=== PATIENT | female | born 1985 | race Hispanic/Latino ===

== ENCOUNTER 2018-12-08 09:09 | Emergency (ER) | payer OTHER ==
[~2018-12-08] VITALS: Ht 152.4 cm; Wt 60.8 kg
[2018-12-08 09:46] LABS: BILIRUBIN,URINE NEGATIVE (NEGATIVE); CLARITY,URINE CLEAR (CLEAR); COLOR,URINE YELLOW (YELLOW); LEUKOCYTE ESTERASE ,URINE TRACE (NEGATIVE); NITRITE,URINE NEGATIVE (NEGATIVE); PROTEIN,URINE DIPSTICK TRACE (NEGATIVE); URINE UROBILINOGEN 0.2 mg/dL (0.2 - 1)
[2018-12-08 09:48] LABS: KETONES,URINE 2+ (NEGATIVE)
[2018-12-08 09:56] LABS: BACTERIA,URINE RARE /HPF; EPITHELIAL CELLS,URINE FEW /LPF
[2018-12-08 11:27] LABS: PREGNANCY TEST, URINE NEGATIVE (NEGATIVE)
[2018-12-08] MEDS ORDERED: CEFTRIAXONE SOD 1 GM VIAL IM ONE (12:30)
[2018-12-08] MEDS ORDERED: LIDOCAINE HCL 1% 2 ML AMP ONE (12:54)
--- NOTE | 2018-12-08 12:54 | NUR ---
JAZMINE MCLEAN IN TRIAGE ROOM FOR PATIENT EVAL AND DISCUSSING THE CURRENT PLAN OF CARE,VERBALIZED UNDERSTANDING. NO SIGNS OF ACUTE DISTRESS NOTED.
== END 2018-12-08 13:25 | disposition home or self-care (01) ==
LOC: ER 09:09
DX: N30.91 Cystitis, unspecified with hematuria (principal); R11.2 Nausea with vomiting, unspecified; E86.0 Dehydration
CPT/HCPCS: 81001; 81025; 99282; J0696; J2001

== ENCOUNTER 2019-08-29 18:54 | Emergency (ER) | payer OTHER ==
[~2019-08-29] VITALS: Ht 152.4 cm; Wt 60.8 kg
[2019-08-29 20:40] LABS: BASOPHILS # (AUTO) 0.1 (0.0-0.1); BASOPHILS % 0.6 % (0.0-1.0); EOSINOPHILS % 0.1 % (0.0-6.0); HEMATOCRIT 41.6 % (34.2-44.1); HEMOGLOBIN 13.4 g/dL (12.0-16.0); LYMPHOCYTES # (AUTO) 2.6 (1.0-3.2); LYMPHOCYTES % 18.3 % (18.0-39.1); MEAN CORPUSCULAR HEMOGLOBIN 27.7 pg (28-32); MEAN CORPUSCULAR HGB CONC 32.2 g/dL (31-35); MEAN CORPUSCULAR VOLUME 86.1 fL (81-99); MONOCYTES # (AUTO) 0.8 (0.2-0.8); MONOCYTES % 5.5 % (4.4-11.3); NEUTROPHILS # (AUTO) 10.7 (2.1-6.9); NEUTROPHILS % 74.9 % (38.7-80.0); PLATELET COUNT 495 x10e3/uL (140-360); RED BLOOD COUNT 4.83 x10e6/uL (3.6-5.1); RED CELL DISTRIBUTION WIDTH 13.3 % (11.7-14.4)
[2019-08-29 20:41] LABS: CLARITY,URINE SL CLOUDY (CLEAR); COLOR,URINE YELLOW (YELLOW); KETONES,URINE 2+ (NEGATIVE); LEUKOCYTE ESTERASE ,URINE TRACE (NEGATIVE); NITRITE,URINE NEGATIVE (NEGATIVE); PROTEIN,URINE DIPSTICK 1+ (NEGATIVE); URINE UROBILINOGEN 0.2 mg/dL (0.2 - 1)
[2019-08-29 20:42] LABS: BILIRUBIN,URINE SMALL (NEGATIVE)
[2019-08-29 20:49] LABS: BACTERIA,URINE MANY /HPF; EPITHELIAL CELLS,URINE MANY /LPF; WBC,URINE (MAN) >50 /HPF (0-5)
[2019-08-29 21:00] LABS: ALANINE AMINOTRANSFERASE 71 IU/L (0-55); ALBUMIN/GLOBULIN RATIO 1.2 (0.8-2.0); ALKALINE PHOSPHATASE 122 IU/L (40-150); ANION GAP 19.5 mmol/L (8-16); BLOOD UREA NITROGEN 7 mg/dL (7-26); BUN/CREATININE RATIO 9 (6-25); CALCIUM 10.6 mg/dL (8.4-10.2); CARBON DIOXIDE 21 mmol/L (22-29); CHLORIDE 103 mmol/L (98-107); CREATININE, SERUM 0.79 mg/dL (0.57-1.11); EST GLOMERULAR FILTRATION RATE > 60 ML/MIN (60-); GLUCOSE 113 mg/dL (74-118); POTASSIUM 3.5 mmol/L (3.5-5.1); SODIUM 140 mmol/L (136-145)
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
== END 2019-08-29 21:21 | disposition home or self-care (01) ==
LOC: ER 18:54
DX: R11.2 Nausea with vomiting, unspecified (principal); R19.7 Diarrhea, unspecified; N39.0 Urinary tract infection, site not specified; Z87.19 Personal history of other diseases of the digestive system
CPT/HCPCS: 36415; 80053; 81001; 81025; 85025; 99283

== ENCOUNTER 2019-09-21 11:58 | Emergency (ER) | payer OTHER ==
[~2019-09-21] VITALS: Ht 154.9 cm; Wt 63.5 kg
[2019-09-21] MEDS ORDERED: SODIUM CHLORIDE 0.9% 1000ML 1,000 ML IV STA (12:08)
[2019-09-21] MEDS ORDERED: ONDANSETRON HCL INJ 2MG/ML 2ML 2 MG/ML VIAL IV ONE (12:15)
[2019-09-21] MEDS ORDERED: FAMOTIDINE 20 MG/2 ML VIAL IV ONE ×2 (12:15→12:32)
[2019-09-21] MEDS ORDERED: SODIUM CHLORIDE 0.9% 1000ML 1,000 ML ONE (12:32)
[2019-09-21] MEDS ORDERED: ONDANSETRON HCL INJ 2MG/ML 2ML 2 MG/ML VIAL ONE (12:32)
--- NOTE | 2019-09-21 12:37 | Emergency Department Note ---
History of Present Illnes History of Present Illness Chief Complaint: Abdominal Complaints History of Present Illness This is a 33 year old female c/o mild RUQ pain nausea, diarrhea (2-3 soft stool per day) feeling dizzy on standing up for 2 days, no f/c no SOB no cough. She was tested for COVID 19 few days back but no rsult yet. She had UTI last monh tx with Levoquin and now she has similar symptoms. Other Medical History GASTRITIS Past Surgical History: Cholecysctectomy Historian: Patient Arrival Mode: Car Onset (how long ago): day(s) Radiation: Reports non-radiation Severity: mild Timing of current episode: intermittent Progression: improving Relieving factors: none Exacerbating factors: none Associated symptoms: Reports denies other symptoms Treatments prior to arrival: none Past Medical/Family History Physician Review I have reviewed the patient's past medical and family history. Any updates have been documented here. Past Medical History Recent Fever: No Clinical Suspicion of Infectio: No Other Medical History: GASTRITIS Past Surgical History: Cholecysctectomy Social History Smoking Cessation: Never Smoker Counseling Performed: No Alcohol Use: None Any Illegal Drug Use: No TB Exposure/Symptoms: No Physically hurt or threatened: No Family History Family history of heart diseas: No Other Last Tetanus: UNKNOWN Any Pre-Existing Lines (PICC,: No Review of Systems Review of Systems EENTM: Reports no symptoms Cardiovascular: Reports no symptoms Respiratory: Reports no symptoms Gastrointestinal: Reports abdominal pain, Reports diarrhea, Reports nausea Genitourinary: Reports no symptoms Musculoskeletal: Reports no symptoms Integumentary: Reports no symptoms Neurological: Reports other (dizzy) Psychological: Reports no symptoms Endocrine: Reports no symptoms Hematological/Lymphatic: Reports no symptoms Physical Exam Related Data Allergies: Coded Allergies: Penicillins (Verified Allergy, Unknown, RASH, 09/21/19) Uncoded Allergies: PENECILLN (Allergy, Intermediate, RASH, 08/29/19) Vital signs reviewed: Yes Physical Exam CONSTITUTIONAL Constitutional: Present well-developed, Present well-nourished, Present other (walking briskly, steady gait, ) HENT HENT: Present normocephalic, Present atraumatic, Present oropharynx clear/moist, Present nose normal HENT L/R: Present left ext ear normal, Present right ext ear normal EYES Eyes: Reports PERRL, Reports conjunctivae normal NECK Neck: Present ROM normal PULMONARY Pulmonary: Present effort normal, Present breath sounds normal CARDIOVASCULAR Cardiovascular: Present regular rhythm, Present heart sounds normal, Present capillary refill normal, Present normal rate GASTROINTESTINAL Abdominal: Present soft, Present nontender, Present bowel sounds normal GENITOURINARY Genitourinary: Present exam deferred SKIN Skin: Present warm, Present dry MUSCULOSKELETAL Musculoskeletal: Present ROM normal NEUROLOGICAL Neurological: Present alert, Present oriented x 3, Present no gross motor or sensory deficits PSYCHOLOGICAL Psychological: Present mood/affect normal, Present judgement normal Results Laboratory Lab results reviewed: Yes Laboratory comments UA c/w UTI Assessment & Plan Medical Decision Making MDM gastroenteritis, UTI Reassessment Reassessment time: 13:45 Reassessment taking PO well, in NAD Assessment & Plan Final Impression: (1) Gastroenteritis (2) UTI (urinary tract infection) Depart Disposition: HOME, SELF-[facility] Meds Active Scripts Nitrofurantoin Macrocrystal (MACRODANTIN) 100 Mg Capsule, 100 MG PO QID, #20 CAP Prov:BERNARDA GIRON MD 09/21/19 Ondansetron Hcl* (ZOFRAN*) 4 Mg Tablet, 4 MG SL Q6H PRN for NAUSEA, #14 MG 0 Refills Prov:BERNARDA GIRON MD 09/21/19 Famotidine (FAMOTIDINE) 20 Mg Tab, 20 MG PO BID, #30 TAB Prov:BERNARDA GIRON MD 09/21/19 Medications in the ED Ondansetron HCl 4 mg ONCE ONCE IV ; Start 09/21/19 at 12:15; Stop 09/21/19 at 12:23; Status DC Famotidine 20 mg ONCE ONCE IV ; Start 09/21/19 at 12:15; Stop 09/21/19 at 12:23; Status DC Sodium Chloride 1,000 ml @ 0 mls/hr Q0M STAT IV ; Start 09/21/19 at 12:08; Stop 09/21/19 at 12:15; Status DC Ondansetron HCl 4 mg STK-MED ONCE .ROUTE ; Start 09/21/19 at 12:32; Stop 09/21/19 at 12:28; Status DC Sodium Chloride 1,000 ml @ ud STK-MED ONCE .ROUTE ; Start 09/21/19 at 12:32; Stop 09/21/19 at 12:28; Status DC Famotidine 20 mg STK-MED ONCE IV ; Start 09/21/19 at 12:32; Stop 09/21/19 at 12:28; Status DC BERNARDA GIRON MD Sep 21, 2019 12:37
[2019-09-21] MEDS ORDERED: ZOFRAN4 MG SL (13:34)
[2019-09-21] MEDS ORDERED: FAMOTIDINE20 MG PO (13:34)
[2019-09-21] MEDS ORDERED: CEFDINIR300 MG PO (13:34)
[2019-09-21] MEDS ORDERED: CEFTRIAXONE SOD 1 GM VIAL IV ONE (13:45)
[2019-09-21] MEDS ORDERED: MACRODANTIN100 MG PO (13:58)
[2019-09-21] MEDS ORDERED: CEFTRIAXONE SOD 1 GM/NS 50 ML 50 ML IV ONE (14:00)
[2019-09-21 14:02] VITALS: BP 127/71
== END 2019-09-21 14:04 | disposition home or self-care (01) ==
LOC: FSED 12:40
DX: K52.9 Noninfective gastroenteritis and colitis, unspecified (principal); N39.0 Urinary tract infection, site not specified; R10.11 Right upper quadrant pain; R11.0 Nausea; R42 Dizziness and giddiness
CPT/HCPCS: 80053; 81003; 81025; 85025; 96374; 96376; 99283; J2405; J7030

== ENCOUNTER 2019-10-10 11:05 | Emergency (ER) | payer OTHER ==
[~2019-10-10] VITALS: Ht 154.9 cm; Wt 81.6 kg
[~2019-10-10 11:05] MED LIST: CEFDINIR300 MG PO; FAMOTIDINE20 MG PO; MACRODANTIN100 MG PO; ZOFRAN4 MG SL
--- OUTSIDE RECORDS SUMMARY | 2019-10-10 11:50 | XMS REPORT | Continuity of Care Document ---
Author Author [facility] t Organization [facility] Address [facility] [address] [place] [address] Phone Unavailable Care Team Providers Care Cafeteria Cook Name Role Phone NONSTAFF PCP Unavailable Payers Payer Name Policy Type Policy Number Effective Date Expiration Date Brett Stanton o [id number] 2019 00:00:00 2020 00:0 0:00 [facility] [employer] o [id number] 2015 00:00:00 [facility] Problems Condition Name Condition Details Condition Category Status Onset Date Resolution Date Last Treatment Date Treating Clinician Comments Source Urinary tract infection Problem Active [facility] Vomiting Problem Active [facility] Diarrhea Problem Active [facility] Gastroenteritis Problem Active [facility] Allergies, Adverse Reactions, Alerts Allergy Name Allergy Type Status Severity Reaction(s) Onset Date Inacti ve Date Treating Clinician Comments Source Penicillin Allergy to substance Active RASH 2019-09-21 00:00:00 [facility] PENECILLN Allergy to substance Active Moderate RASH 2019-08-29 00:00:00 [facility] Social History Social Habit Start Date Stop Date Quantity Comments Source Sex Assigned At 1985 00:00:00 1985 00:00:00 Female [facility] Medications Ordered Medication Name Filled Medication Name Start Date Stop Da te Current Medication? Ordering Clinician Indication Dosage Frequency Signature (SIG) Comments Components Source Nitrofurantoin Macrocrystal (Macrodantin) 100 Mg CAPSU LE Nitrofurantoin Macrocrystal (Macrodantin) 100 Mg CAPSULE 2019-09-21 13:58:00 Yes 100 Four Times Daily [facility] Famotidine Famotidine 2019-09-21 13:34:00 Yes 20 Twi ce A Day [facility] Ondansetron Hcl (Zofran*) 4 Mg TABLET Ondansetron Hcl (Zofra n*) 4 Mg TABLET 2019-09-21 13:34:00 Yes 4 Every 6 Hours as n eeded for Nausea [facility] Vital Signs Vital Name Observation Time Observation Value Comments Source Body Temperature 2019-09-21 14:02:00 98.2 [degF] [facility] Weight 2019-09-21 12:00:00 140 [lb_av] [facility] BMI (Body Mass Index) 2019-09-21 12:00:00 26.5 kg/m2 [facility] Weight 2019-08-29 19:56:00 134 [lb_av] [facility] BMI (Body Mass Index) 2019-08-29 19:56:00 26.2 kg/m2 [facility] Procedures This patient has no known procedures. Plan of Care Planned Activity Planned Date Details Comments Source Instructions Abdominal Pain - Adult [facility] Instructions Urinary Tract Infection - Women [facility] Encounters Start Date/Time End Date/Time Encounter Type Admission Type [facility] Care Department Encounter ID Source 2019-09-21 12:40:00 2019-09-21 14:04:00 Departed Emergency Room [facility] [id number] [facility] 2019-08-29 18:54:00 2019-08-29 21:21:00 Departed Emergency Room [facility] [id number] [facility] 2018-12-08 09:09:00 2018-12-08 13:25:00 Departed Emergency Room [facility] [id number] [facility] Results Test Description Test Time Test Comments Results Result Comments Source Blood leukocytes automated count (number/volume) 2019-08-29 20:05:00 Test Item White Blood Count (test code = 6690-2) 14.30 4.8-10.8 [facility] erythrocytes automated count (number/volume)2019-08-29 20:05:00* Test Item Value Reference Range Interpretation Comments Red Blood Count (test code = 789-8) 4.83 3.6-5.1 [facility] HospitalBlood hemoglobin measurement (moles/volume)2019-08-29 20:05:00* Test Item Value Reference Range Interpretation Comments Hemoglobin (test code = 16087-2) 13.4 12.0-16.0 [facility] HospitalAutomated blood hematocrit (volume fraction)2019-08-29 20:05:00* Test Item Value Reference Range Interpretation Comments Hematocrit (test code = 4544-3) 41.6 34.2-44.1 [facility] HospitalAutomated erythrocyte mean corpuscular cralrm0181-21-74 20:05:00* Test Item Value Reference Range Interpretation Comments Mean Corpuscular Volume (test code = 787-2) 86.1 81-99 [facility] HospitalAutomated erythrocyte mean corpuscular hemoglobin (mass per erythrocyte)2019-08-29 20:05:00* Test Item Value Reference Range Interpretation Comments Mean Corpuscular Hemoglobin (test code = 785-6) 27.7 28-32 [facility] HospitalAutomated erythrocyte mean corpuscular hemoglobin concentration measurement (mass/volume)2019-08-29 20:05:00* Test Item Value Reference Range Interpretation Comments Mean Corpuscular Hemoglobin Concent (test code = 786-4) 32.2 31-35 [facility] HospitalRDW PgmSk-Qqz5069-18-23 20:05:00* Test Item Value Reference Range Interpretation Comments Red Cell Distribution Width (test code = 11725-9) 13.3 11.7 -14.4 [facility] HospitalAutomated blood platelet count (count/volume)2019-08-29 20:05:00* Test Item Value Reference Range Interpretation Comments Platelet Count (test code = 777-3) 495 140-360 [facility] HospitalAutomated blood segmented neutrophil count as percentage of total irrywesvgs5366-74-26 20:05:00* Test Item Value Reference Range Interpretation Comments Neutrophils (%) (Auto) (test code = 42406-5) 74.9 38.7-80.0 [facility] HospitalAutomated blood lymphocyte count as percentage ot total bfcluijmib7574-82-40 20:05:00* Test Item Value Reference Range Interpretation Comments Lymphocytes (%) (Auto) (test code = 736-9) 18.3 18.0-39.1 [facility] HospitalAutomated blood monocyte count as percentage of total pdgwhfcfhq1796-92-74 20:05:00* Test Item Value Reference Range Interpretation Comments Monocytes (%) (Auto) (test code = 5905-5) 5.5 4.4-11.3 [facility] HospitalAutomated blood eosinophil count as percentage of total tkxvfzbalz6577-75-24 20:05:00* Test Item Value Reference Range Interpretation Comments Eosinophils (%) (Auto) (test code = 713-8) 0.1 0.0-6.0 [facility] HospitalAutomated blood basophil count as percentage of total pklidtyqcm7523-57-82 20:05:00* Test Item Value Reference Range Interpretation Comments Basophils (%) (Auto) (test code = 706-2) 0.6 0.0-1.0 [facility] HospitalFluoroscopic procedure less than one hour rbwkvgsz9072-38-68 20:05:00* Test Item Value Reference Range Interpretation Comments IM GRANULOCYTES % (test code = IM GRANULOCYTES %) 0.6 0.0- 1.0 [facility] HospitalAutomated blood neutrophil count 2019-08-29 20:05:00* Test Item Value Reference Range Interpretation Comments Neutrophils # (Auto) (test code = 751-8) 10.7 2.1-6.9 [facility] HospitalBlood lymphocytes count (number/volume) 2019-08-29 20:05:00* Test Item Value Reference Range Interpretation Comments Lymphocytes # (Auto) (test code = 88872-9) 2.6 1.0-3.2 [facility] HospitalBlood monocytes automated count (number/volume)2019-08-29 20:05:00* Test Item Value Reference Range Interpretation Comments Monocytes # (Auto) (test code = 742-7) 0.8 0.2-0.8 [facility] HospitalAutomated blood eosinophil count 2019-08-29 20:05:00* Test Item Value Reference Range Interpretation Comments Eosinophils # (Auto) (test code = 711-2) 0.0 0.0-0.4 [facility] HospitalAutomated blood basophil count (count/volume)2019-08-29 20:05:00* Test Item Value Reference Range Interpretation Comments Basophils # (Auto) (test code = 704-7) 0.1 0.0-0.1 [facility] HospitalFluoroscopic procedure less than one hour cldmfkyi7230-37-27 20:05:00* Test Item Value Reference Range Interpretation Comments Absolute Immature Granulocyte (auto (kingsley t code = Absolute Immature Granulocyte (auto) 0.09 0-0.1 [facility] HospitalUrine color blpfgbjvrtpkn2549-33-09 20:05:00* Test Item Value Reference Range Interpretation Comments Urine Color (test code = 5778-6) YELLOW YELLOW [facility] HospitalUrine ffmfjpm3584-67-85 20:05:00* Test Item Value Reference Range Interpretation Comments Urine Clarity (test code = 80523-1) SL [facility]OUDY [facility] by Test strip 2019-08-29 20:05:00* Test Item Value Reference Range Interpretation Comments Urine Specific [place] (test code = 5811-5) 1.025 1.010-1.02 5 [facility] HospitalUrine pH measurement by automated test owhys9889-64-00 20:05:00* Test Item Value Reference Range Interpretation Comments Urine pH (test code = 84914-1) 6.5 5-7 [facility] HospitalUrine leukocyte esterase detection by xnofngxd5588-58-05 20:05:00* Test Item Value Reference Range Interpretation Comments Urine Leukocyte Esterase (test code = 5799-2) TRACE NEGATIVE [facility] HospitalUrine nitrite eikfqnrhs8538-24-84 20:05:00* Test Item Value Reference Range Interpretation Comments Urine Nitrite (test code = 27780-8) NEGATIVE NEGATIVE [facility] HospitalUrine protein measurement by test strip (mass/volume)2019-08-29 20:05:00* Test Item Value Reference Range Interpretation Comments Urine Protein (test code = 5804-0) 1+ NEGATIVE [facility] HospitalUrine glucose uoyvrfeyk5399-19-80 20:05:00* Test Item Value Reference Range Interpretation Comments Urine Glucose (UA) (test code = 2349-9) NEGATIVE NEGATIVE [facility] HospitalUrine ketones detection by automated test brncx5281-42-56 20:05:00* Test Item Value Reference Range Interpretation Comments Urine Ketones (test code = 56912-0) 2+ NEGATIVE [facility] HospitalUrine urobilinogen measurement by test strip (mass/volume)2019-08-29 20:05:00* Test Item Value Reference Range Interpretation Comments Urine Urobilinogen (test code = 52797-3) 0.2 0.2-1 [facility] HospitalUrine total bilirubin measurement (mass/volume)2019-08-29 20:05:00* Test Item Value Reference Range Interpretation Comments Urine Bilirubin (test code = 1978-6) SMALL NEGATIVE [facility] HospitalUrine erythrocytes kfskjieaz8735-27-54 20:05:00* Test Item Value Reference Range Interpretation Comments Urine Blood (test code = 25417-5) SMALL NEGATIVE [facility] HospitalAutomated urine sediment leukocyte count by microscopy (number/high power field)2019-08-29 20:05:00* Test Item Value Reference Range Interpretation Comments Urine WBC (test code = 5821-4) >50 0-5 [facility] HospitalErythrocytes detection in urine sediment by light eymumswxqe5274-21-37 20:05:00* Test Item Value Reference Range Interpretation Comments Urine RBC (test code = 52091-6) 11-20 0-5 [facility] HospitalBacteria detection in urine sediment by light fgeeeiqnhd8305-99-64 20:05:00* Test Item Value Reference Range Interpretation Comments Urine Bacteria (test code = 75319-2) MANY NONE [facility] HospitalEpithelial cells detection in urine sediment by light itxhufipmj9920-01-35 20:05:00* Test Item Value Reference Range Interpretation Comments Urine Epithelial Cells (test code = 20388-1) MANY NONE [facility] HospitalUrine human chorionic gonadotropin (hCG) zclyxuzin9163-45-17 20:05:00* Test Item Value Reference Range Interpretation Comments Urine Test (test code = 2106-3) NEGATIVE NEGATIVE [facility] plasma sodium measurement (moles/volume)2019-08-29 20:05:00* Test Item Value Reference Range Interpretation Comments Sodium Level (test code = 2951-2) 140 136-145 [facility] or plasma potassium measurement (moles/volume)2019-08-29 20:05:00* Test Item Value Reference Range Interpretation Comments Potassium Level (test code = 2823-3) 3.5 3.5-5.1 [facility] plasma chloride measurement (moles/volume)2019-08-29 20:05:00* Test Item Value Reference Range Interpretation Comments Chloride Level (test code = 2075-0) 103 98-107 [facility] or plasma carbon dioxide, total measurement (moles/volume)2019-08-29 20:05:00* Test Item Value Reference Range Interpretation Comments Carbon Dioxide Level (test code = 2028-9) 21 22-29 [facility] plasma anion jdy4966-12-95 20:05:00* Test Item Value Reference Range Interpretation Comments Anion Gap (test code = 36752-8) 19.5 8-16 [facility] plasma urea nitrogen measurement (mass/volume)2019-08-29 20:05:00* Test Item Value Reference Range Interpretation Comments Blood Urea Nitrogen (test code = 3094-0) 7 7-26 [facility] creatinine measurement (mass/volume)2019-08-29 20:05:00* Test Item Value Reference Range Interpretation Comments Creatinine (test code = 2160-0) 0.79 0.57-1.11 [facility] urea nitrogen/creatinine mass dpqfj2131-35-11 20:05:00* Test Item Value Reference Range Interpretation Comments BUN/Creatinine Ratio (test code = 3097-3) 9 6-25 [facility] HospitalEstimated glomerular filtration rate (GFR) qzyelqtdsbrmp7580-13-43 20:05:00* Test Item Value Reference Range Interpretation Comments Estimat Glomerular Filtration Rate (test code = 771320154) > 60 >60 Ranges were taken from the National Kidney Disease Education Program and the [facility] Kidney Foundation literature.Reference ranges:60 or greater: Maxnao17-89 ( for 3 consecutive months): Chronic kidney disease 15 or less: Kidney failureAudie L. Murphy Memorial VA HospitalGlucose kyptyztfnsy5943-45-31 20:05:00* Test Item Value Reference Range Interpretation Comments Glucose Level (test code = UGW0385) 113 74-118 [facility] plasma calcium measurement (mass/volume)2019-08-29 20:05:00* Test Item Value Reference Range Interpretation Comments Calcium Level (test code = 36312-2) 10.6 8.4-10.2 [facility] plasma total bilirubin measurement (mass/volume)2019-08-29 20:05:00* Test Item Value Reference Range Interpretation Comments Total Bilirubin (test code = 1975-2) 0.5 0.2-1.2 [facility] HospitalFluoroscopic procedure less than one hour ycriatuc7392-89-84 20:05:00* Test Item Value Reference Range Interpretation Comments Aspartate Amino Transf (AST/SGOT) (test code = Aspartate Amino Transf (AST/SGOT)) 61 5-34 [facility] or plasma alanine aminotransferase measurement (enzymatic activity/volume)2019-08-29 20:05:00* Test Item Value Reference Range Interpretation Comments Alanine Aminotransferase (ALT/SGPT) (test code = 1742-6) 71 0-55 [facility] or plasma protein measurement (mass/volume)2019-08-29 20:05:00* Test Item Value Reference Range Interpretation Comments Total Protein (test code = 2885-2) 9.3 6.5-8.1 [facility] albumin measurement (mass/volume)2019-08-29 20:05:00* Test Item Value Reference Range Interpretation Comments Albumin (test code = 1751-7) 5.0 3.5-5.0 [facility] HospitalPlasma globulin measurement (mass/volume) 2019-08-29 20:05:00* Test Item Value Reference Range Interpretation Comments Globulin (test code = 27414-1) 4.3 2.3-3.5 [facility] albumin/globulin mass qrypd2265-77-94 20:05:00* Test Item Value Reference Range Interpretation Comments Albumin/Globulin Ratio (test code = 1759-0) 1.2 0.8-2.0 [facility] plasma alkaline phosphatase measurement (enzymatic activity/volume)2019-08-29 20:05:00* Test Item Value Reference Range Interpretation Comments Alkaline Phosphatase (test code = 6768-6) 122 40-150 [facility] HospitalBlood leukocytes automated count (number/volume)2019-08-29 20:05:00* Test Item Value Reference Range Interpretation Comments White Blood Count (test code = 6690-2) 14.30 4.8-10.8 [facility] HospitalBlood erythrocytes automated count (number/volume)2019-08-29 20:05:00* Test Item Value Reference Range Interpretation Comments Red Blood Count (test code = 789-8) 4.83 3.6-5.1 [facility] HospitalBlood hemoglobin measurement (moles/volume)2019-08-29 20:05:00* Test Item Value Reference Range Interpretation Comments Hemoglobin (test code = 54669-8) 13.4 12.0-16.0 [facility] HospitalAutomated blood hematocrit (volume fraction)2019-08-29 20:05:00* Test Item Value Reference Range Interpretation Comments Hematocrit (test code = 4544-3) 41.6 34.2-44.1 [facility] HospitalAutomated erythrocyte mean corpuscular yovayy1459-02-24 20:05:00* Test Item Value Reference Range Interpretation Comments Mean Corpuscular Volume (test code = 787-2) 86.1 81-99 [facility] HospitalAutomated erythrocyte mean corpuscular hemoglobin (mass per erythrocyte)2019-08-29 20:05:00* Test Item Value Reference Range Interpretation Comments Mean Corpuscular Hemoglobin (test code = 785-6) 27.7 28-32 [facility] HospitalAutomated erythrocyte mean corpuscular hemoglobin concentration measurement (mass/volume)2019-08-29 20:05:00* Test Item Value Reference Range Interpretation Comments Mean Corpuscular Hemoglobin Concent (test code = 786-4) 32.2 31-35 [facility] HospitalRDW IecQm-Vqf5767-35-23 20:05:00* Test Item Value Reference Range Interpretation Comments Red Cell Distribution Width (test code = 04403-6) 13.3 11.7 -14.4 [facility] HospitalAutomated blood platelet count (count/volume)2019-08-29 20:05:00* Test Item Value Reference Range Interpretation Comments Platelet Count (test code = 777-3) 495 140-360 [facility] HospitalAutselect [facility] blood segmented neutrophil count as percentage of total bmbjefpuga8642-08-22 20:05:00* Test Item Value Reference Range Interpretation Comments Neutrophils (%) (Auto) (test code = 66667-6) 74.9 38.7-80.0 [facility] HospitalAutselect [facility] blood lymphocyte count as percentage ot total fisizolueo1443-07-41 20:05:00* Test Item Value Reference Range Interpretation Comments Lymphocytes (%) (Auto) (test code = 736-9) 18.3 18.0-39.1 [facility] HospitalAutomated blood monocyte count as percentage of total gkdpjiosyi2893-87-31 20:05:00* Test Item Value Reference Range Interpretation Comments Monocytes (%) (Auto) (test code = 5905-5) 5.5 4.4-11.3 [facility] HospitalAutomated blood eosinophil count as percentage of total ntcshwtzug0760-50-55 20:05:00* Test Item Value Reference Range Interpretation Comments Eosinophils (%) (Auto) (test code = 713-8) 0.1 0.0-6.0 [facility] HospitalAutomated blood basophil count as percentage of total mbjcvptftp3009-53-25 20:05:00* Test Item Value Reference Range Interpretation Comments Basophils (%) (Auto) (test code = 706-2) 0.6 0.0-1.0 [facility] HospitalFluoroscopic procedure less than one hour xfxnfhis5330-48-97 20:05:00* Test Item Value Reference Range Interpretation Comments IM GRANULOCYTES % (test code = IM GRANULOCYTES %) 0.6 0.0- 1.0 [facility] HospitalAutomated blood neutrophil count 2019-08-29 20:05:00* Test Item Value Reference Range Interpretation Comments Neutrophils # (Auto) (test code = 751-8) 10.7 2.1-6.9 [facility] HospitalBlood lymphocytes count (number/volume) 2019-08-29 20:05:00* Test Item Value Reference Range Interpretation Comments Lymphocytes # (Auto) (test code = 36154-7) 2.6 1.0-3.2 [facility] HospitalBlaitkin hospital monocytes automated count (number/volume)2019-08-29 20:05:00* Test Item Value Reference Range Interpretation Comments Monocytes # (Auto) (test code = 742-7) 0.8 0.2-0.8 [facility] HospitalAutomated blood eosinophil count 2019-08-29 20:05:00* Test Item Value Reference Range Interpretation Comments Eosinophils # (Auto) (test code = 711-2) 0.0 0.0-0.4 [facility] HospitalAutomated blood basophil count (count/volume)2019-08-29 20:05:00* Test Item Value Reference Range Interpretation Comments Basophils # (Auto) (test code = 704-7) 0.1 0.0-0.1 [facility] HospitalFluoroscopic procedure less than one hour cmdhxptv3425-37-78 20:05:00* Test Item Value Reference Range Interpretation Comments Absolute Immature Granulocyte (auto (kingsley t code = Absolute Immature Granulocyte (auto) 0.09 0-0.1 [facility] HospitalUrine color uzcycrsekreqn7492-01-84 20:05:00* Test Item Value Reference Range Interpretation Comments Urine Color (test code = 5778-6) YELLOW YELLOW [facility] HospitalUrine wmqdoku6731-67-22 20:05:00* Test Item Value Reference Range Interpretation Comments Urine Clarity (test code = 04243-4) SL CLOUDY CLEAR [facility] Height[facility] of Urine by Test strip 2019-08-29 20:05:00* Test Item Value Reference Range Interpretation Comments Urine Specific [place] (test code = 5811-5) 1.025 1.010-1.02 5 [facility] HospitalUrine pH measurement by automated test vdzkg7038-12-85 20:05:00* Test Item Value Reference Range Interpretation Comments Urine pH (test code = 29879-4) 6.5 5-7 [facility] HospitalUrine leukocyte esterase detection by koigkvlr3461-59-14 20:05:00* Test Item Value Reference Range Interpretation Comments Urine Leukocyte Esterase (test code = 5799-2) TRACE NEGATIVE [facility] HospitalUrine nitrite zwrysixyt2735-91-44 20:05:00* Test Item Value Reference Range Interpretation Comments Urine Nitrite (test code = 03545-3) NEGATIVE NEGATIVE [facility] HospitalUrine protein measurement by test strip (mass/volume)2019-08-29 20:05:00* Test Item Value Reference Range Interpretation Comments Urine Protein (test code = 5804-0) 1+ NEGATIVE [facility] HospitalUrine glucose fbxzgfekr9368-12-27 20:05:00* Test Item Value Reference Range Interpretation Comments Urine Glucose (UA) (test code = 2349-9) NEGATIVE NEGATIVE [facility] HospitalUrine ketones detection by automated test bkfid9827-77-24 20:05:00* Test Item Value Reference Range Interpretation Comments Urine Ketones (test code = 24881-2) 2+ NEGATIVE [facility] HospitalUrine urobilinogen measurement by test strip (mass/volume)2019-08-29 20:05:00* Test Item Value Reference Range Interpretation Comments Urine Urobilinogen (test code = 49617-3) 0.2 0.2-1 [facility] HospitalUrine total bilirubin measurement (mass/volume)2019-08-29 20:05:00* Test Item Value Reference Range Interpretation Comments Urine Bilirubin (test code = 1978-6) SMALL NEGATIVE [facility] HospitalUrine erythrocytes qfpbhhiaf8784-04-14 20:05:00* Test Item Value Reference Range Interpretation Comments Urine Blood (test code = 26093-9) SMALL NEGATIVE [facility] HospitalAutomated urine sediment leukocyte count by microscopy (number/high power field)2019-08-29 20:05:00* Test Item Value Reference Range Interpretation Comments Urine WBC (test code = 5821-4) >50 0-5 [facility] HospitalErythrocytes detection in urine sediment by light jocdphgbpl4563-77-65 20:05:00* Test Item Value Reference Range Interpretation Comments Urine RBC (test code = 29887-6) 11-20 0-5 [facility] HospitalBacteria detection in urine sediment by light bqfuidlbiv8983-06-47 20:05:00* Test Item Value Reference Range Interpretation Comments Urine Bacteria (test code = 85043-7) MANY NONE [facility] HospitalEpithelial cells detection in urine sediment by light [id number] 20:05:00* Test Item Value Reference Range Interpretation Comments Urine Epithelial Cells (test code = 13739-5) MANY NONE [facility] Hospital[facility] human chorionic gonadotropin (hCG) [id number] 20:05:00* Test Item Value Reference Range Interpretation Comments Urine Test (test code = 2106-3) NEGATIVE NEGATIVE [facility] sodium [facility] (moles/volume)2019-08-29 20:05:00* Test Item Value Reference Range Interpretation Comments Sodium Level (test code = 2951-2) 140 136-145 [facility] potassium measurement (moles/volume)2019-08-29 20:05:00* Test Item Value Reference Range Interpretation Comments Potassium Level (test code = 2823-3) 3.5 3.5-5.1 [facility] chloride measurement (moles/volume)2019-08-29 20:05:00* Test Item Value Reference Range Interpretation Comments Chloride Level (test code = 2075-0) 103 98-107 [facility] carbon dioxide, total measurement (moles/volume)2019-08-29 20:05:00* Test Item Value Reference Range Interpretation Comments Carbon Dioxide Level (test code = 2028-9) 21 22-29 [facility] anion [id number] 20:05:00* Test Item Value Reference Range Interpretation Comments Anion Gap (test code = 25822-5) 19.5 8-16 [facility] urea nitrogen measurement (mass/volume)2019-08-29 20:05:00* Test Item Value Reference Range Interpretation Comments Blood Urea Nitrogen (test code = 3094-0) 7 7-26 [facility] creatinine measurement (mass/volume)2019-08-29 20:05:00* Test Item Value Reference Range Interpretation Comments Creatinine (test code = 2160-0) 0.79 0.57-1.11 [facility] urea nitrogen/creatinine mass [id number] 20:05:00* Test Item Value Reference Range Interpretation Comments BUN/Creatinine Ratio (test code = 3097-3) 9 6-25 [facility] HospitalEstimated glomerular filtration rate (GFR) [id number] 20:05:00* Test Item Value Reference Range Interpretation Comments Estimat Glomerular Filtration Rate (test code = 772252660) > 60 >60 Ranges were taken from the National Kidney Disease Education Program and the [facility] literature.Reference ranges:60 or greater: Dxwcsp08-86 ( for 3 consecutive months): Chronic kidney disease 15 or less: Kidney failureAudie L. Murphy [facility] HospitalGlucose [id number] 20:05:00* Test Item Value Reference Range Interpretation Comments Glucose Level (test code = EZB7389) 113 74-118 [facility] calcium measurement (mass/volume)2019-08-29 20:05:00* Test Item Value Reference Range Interpretation Comments Calcium Level (test code = 19279-1) 10.6 8.4-10.2 [facility] total bilirubin measurement (mass/volume)2019-08-29 20:05:00* Test Item Value Reference Range Interpretation Comments Total Bilirubin (test code = 1975-2) 0.5 0.2-1.2 [facility] HospitalFluoroscopic procedure less than one hour [id number] 20:05:00* Test Item Value Reference Range Interpretation Comments Aspartate Amino Transf (AST/SGOT) (test code = Aspartate Amino Transf (AST/SGOT)) 61 5-34 [facility] alanine aminotransferase measurement (enzymatic activity/volume)2019-08-29 20:05:00* Test Item Value Reference Range Interpretation Comments Alanine Aminotransferase (ALT/SGPT) (test code = 1742-6) 71 0-55 [facility] protein measurement (mass/volume)2019-08-29 20:05:00* Test Item Value Reference Range Interpretation Comments Total Protein (test code = 2885-2) 9.3 6.5-8.1 [facility] albumin measurement (mass/volume)2019-08-29 20:05:00* Test Item Value Reference Range Interpretation Comments Albumin (test code = 1751-7) 5.0 3.5-5.0 [facility] HospitalPlasma globulin measurement (mass/volume) 2019-08-29 20:05:00* Test Item Value Reference Range Interpretation Comments Globulin (test code = 16920-2) 4.3 2.3-3.5 [facility] albumin/globulin mass cavxo5426-50-65 20:05:00* Test Item Value Reference Range Interpretation Comments Albumin/Globulin Ratio (test code = 1759-0) 1.2 0.8-2.0 [facility] alkaline phosphatase measurement (enzymatic activity/volume)2019-08-29 20:05:00* Test Item Value Reference Range Interpretation Comments Alkaline Phosphatase (test code = 6768-6) 122 40-150 [facility] Hospital[facility] [id number] 11:27:00* Test Item Value Reference Range Interpretation Comments Urine Test (test code = 2106-3) NEGATIVE NEGATIVE [facility] Hospital[facility] [id number] 09:56:00* Test Item Value Reference Range Interpretation Comments Urine WBC (test code = 5821-4) 6-10 0-5 H [facility] [id number] 09:56:00* Test Item Value Reference Range Interpretation Comments Urine RBC (test code = 26895-0) 6-10 0-5 H [facility] [id number] 09:56:00* Test Item Value Reference Range Interpretation Comments Urine Bacteria (test code = 42799-8) RARE NONE [facility] Epithelial [id number] 09:56:00 * Test Item Value Reference Range Interpretation Comments Urine Epithelial Cells (test code = 97854-2) FEW NONE [facility] [id number] 09:48:00* Test Item Value Reference Range Interpretation Comments Urine Color (test code = 5778-6) YELLOW YELLOW [facility] [id number] 09:48:00* Test Item Value Reference Range Interpretation Comments Urine Clarity (test code = 97707-2) CLEAR CLEAR [facility] HospitalU[facility] Specific [id number] 09:48:00 * Test Item Value Reference Range Interpretation Comments Urine Specific [place] (test code = 5811-5) 1.020 1.010-1.02 5 [facility] [id number] 09:48:00* Test Item Value Reference Range Interpretation Comments Urine pH (test code = 37259-4) 6 5-7 [facility] Leukocyte [id number] 09:48:00* Test Item Value Reference Range Interpretation Comments Urine Leukocyte Esterase (test code = 42610-0) TRACE NEGATIV E H [facility] [id number] 09:48:00* Test Item Value Reference Range Interpretation Comments Urine Nitrite (test code = 75169-9) NEGATIVE NEGATIVE [facility] Iulojpv1354-25-25 09:48:00* Test Item Value Reference Range Interpretation Comments Urine Protein (test code = 85299-1) TRACE NEGATIVE H [facility] HospitalU[facility] Glucose (UA)2018-12-08 09:48:00* Test Item Value Reference Range Interpretation Comments Urine Glucose (UA) (test code = 58185-8) NEGATIVE NEGATIVE [facility] [id number] 09:48:00* Test Item Value Reference Range Interpretation Comments Urine Ketones (test code = 87236-5) 2+ NEGATIVE H [facility] [id number] 09:48:00* Test Item Value Reference Range Interpretation Comments Urine Urobilinogen (test code = 61681-6) 0.2 0.2-1 [facility] [id number] 09:48:00* Test Item Value Reference Range Interpretation Comments Urine Bilirubin (test code = 1977-8) NEGATIVE NEGATIVE [facility] [id number] 09:48:00* Test Item Value Reference Range Interpretation Comments Urine Blood (test code = 44351-4) 1+ NEGATIVE [facility]
[2019-10-10] MEDS ORDERED: MAGNESIUM CITR296 ML PO (11:55)
[2019-10-10] MEDS ORDERED: COLACE100 MG PO (11:55)
[2019-10-10] MEDS ORDERED: CIPRO500 MG PO (11:55)
--- NOTE | 2019-10-10 11:56 | Emergency Department Note ---
History of Present Illnes History of Present Illness Chief Complaint: anal pain/ mild bloody stool History of Present Illness This is a 33 year old female. h/o uterine polyps. + intermittent vaginal bleed. Historian: Patient History limited by: condition of the patient Animal Sitter Required: No Onset (how long ago): day(s) (1) Location: anal Radiation: Reports non-radiation Severity: moderate Onset quality: gradual Timing of current episode: constant Chronicity: new Context: Denies recent illness, Denies recent surgery, Denies recent immobilization, Denies recent travel, Denies trauma/injury, Denies new medications, Denies hx of DVT/PE, Denies non-compliance w/ medications Relieving factors: none Exacerbating factors: none Associated symptoms: Reports denies other symptoms Treatments prior to arrival: none Past Medical/Family History Physician Review I have reviewed the patient's past medical and family history. Any updates have been documented here. Past Medical History Recent Fever: No Clinical Suspicion of Infectio: No New/Unexplained Change in Ment: No Past Medical History: Anxiety Other Medical History: GASTRITIS Past Surgical History: Cholecysctectomy Social History Smoking Cessation: Never Smoker Counseling Performed: No Alcohol Use: None Any Illegal Drug Use: No Physically hurt or threatened: No Other Last Tetanus: UNKNOWN Any Pre-Existing Lines (PICC,: No Review of Systems Review of Systems Constitutional: Reports no symptoms EENTM: Reports no symptoms Cardiovascular: Reports no symptoms Respiratory: Reports no symptoms Gastrointestinal: Reports as per HPI, Reports other (+anal pain) Genitourinary: Reports no symptoms Musculoskeletal: Reports no symptoms Integumentary: Reports no symptoms Neurological: Reports no symptoms Psychological: Reports no symptoms Endocrine: Reports no symptoms Hematological/Lymphatic: Reports no symptoms Review of other systems: All other systems negative Physical Exam Related Data Allergies: Coded Allergies: Penicillins (Verified Allergy, Unknown, RASH, 09/21/19) Uncoded Allergies: PENECILLN (Allergy, Intermediate, RASH, 08/29/19) Vital signs reviewed: Yes Physical Exam CONSTITUTIONAL Constitutional: Present well-developed, Present well-nourished HENT HENT: Present normocephalic, Present atraumatic, Present oropharynx clear/moist, Present nose normal HENT L/R: Present left ext ear normal, Present right ext ear normal EYES Eyes: Reports PERRL, Reports conjunctivae normal NECK Neck: Present ROM normal, Present supple PULMONARY Pulmonary: Present effort normal, Present breath sounds normal CARDIOVASCULAR Cardiovascular: Present regular rhythm, Present heart sounds normal, Present intact distal pulses, Present capillary refill normal, Present normal rate GASTROINTESTINAL Abdominal: Present soft, Present nontender, Present bowel sounds normal, Present other (+anal fissures) GENITOURINARY Genitourinary: Present exam deferred SKIN Skin: Present warm, Present dry MUSCULOSKELETAL Musculoskeletal: Present ROM normal NEUROLOGICAL Neurological: Present alert, Present oriented x 3, Present no gross motor or sensory deficits PSYCHOLOGICAL Psychological: Present mood/affect normal, Present judgement normal Results Laboratory Lab results reviewed: Yes (hemoccult trace +) Laboratory comments ua + leukocytes Assessment & Plan Medical Decision Making MDM see below Assessment & Plan Final Impression: (1) Anal fissure (2) UTI (urinary tract infection) Depart Disposition: HOME, SELF-alf Meds Active Scripts Docusate Sodium (COLACE) 100 Mg Cap, 100 MG PO Q12H PRN for CONSTIPATION, #30 CAP 1 Refill Prov:RADHA MAYO 10/10/19 Magnesium Citrate (MAGNESIUM CITRATE) 296 Ml Solution, 300 ML PO DAILY PRN for CONSTIPATION, #300 ML 1 Refill Prov:RADHA MAYO 10/10/19 Ciprofloxacin Hcl (CIPRO) 500 Mg Tablet, 500 MG PO Q12H, #20 TAB Prov:RADHA MAYO 10/10/19 Nitrofurantoin Macrocrystal (MACRODANTIN) 100 Mg Capsule, 100 MG PO QID, #20 CAP Prov:BERNARDA GIRON MD 09/21/19 Ondansetron Hcl* (ZOFRAN*) 4 Mg Tablet, 4 MG SL Q6H PRN for NAUSEA, #14 MG 0 Refills Prov:BERNARDA GIRON MD 09/21/19 Famotidine (FAMOTIDINE) 20 Mg Tab, 20 MG PO BID, #30 TAB Prov:BERNARDA GIRON MD 09/21/19 RADHA MAYO Oct 10, 2019 11:56
== END 2019-10-10 12:23 | disposition home or self-care (01) ==
LOC: FSED 11:30
DX: K60.2 Anal fissure, unspecified (principal); N39.0 Urinary tract infection, site not specified; F41.9 Anxiety disorder, unspecified
CPT/HCPCS: 99283

== ENCOUNTER 2021-01-25 14:59 | Emergency (ER) | payer OTHER ==
[~2021-01-25] VITALS: Ht 152.4 cm; Wt 57.2 kg
[~2021-01-25 14:59] MED LIST changes: +CIPRO500 MG PO; +COLACE100 MG PO; +MAGNESIUM CITR296 ML PO
[2021-01-25] MEDS ORDERED: SODIUM CHLORIDE 0.9% 1000ML 1,000 ML IV STA (15:30)
[2021-01-25] MEDS ORDERED: FAMOTIDINE 20 MG/2 ML VIAL IV ONE ×2 (16:00→16:13)
[2021-01-25] MEDS ORDERED: DONNATAL/LIDOCAINE/MAALOX 30 ML SUSP PO ONE (16:00)
[2021-01-25] MEDS ORDERED: BELLADONNA ALK/PHENOBARBITAL 5 ML UDC ONE (16:12)
[2021-01-25] MEDS ORDERED: MAGNESIUM/ALUMINUM/SIMETHICONE 30 ML UDC ONE (16:12)
[2021-01-25] MEDS ORDERED: LIDOCAINE VISC 2% SOLN 15 ML UDC ONE (16:13)
[2021-01-25] MEDS ORDERED: SODIUM CHLORIDE 0.9% 1000ML 1,000 ML ONE (16:13)
[2021-01-25] MEDS ORDERED: DICYCLOMINE HCL20 MG PO ×2 (17:01→17:16)
[2021-01-25] MEDS ORDERED: BACTRIM DS TAB1 EACH PO ×2 (17:01→17:16)
[2021-01-25] MEDS ORDERED: KETOROLAC TROMETHAMINE 30 MG/ML VIAL ONE (17:10)
[2021-01-25 17:17] VITALS: BP 123/71
[2021-01-25] MEDS ORDERED: KETOROLAC TROMETHAMINE 30 MG/ML VIAL IV ONE (17:30)
[2021-01-25] MEDS ORDERED: TRIMETHOPRIM/SULFAMETHOXAZOLE 160-800 MG TAB PO ONE (17:30)
== END 2021-01-25 17:17 | disposition home or self-care (01) ==
LOC: FSED 15:25
DX: R10.9 Unspecified abdominal pain (principal); K52.9 Noninfective gastroenteritis and colitis, unspecified; F41.9 Anxiety disorder, unspecified
CPT/HCPCS: 80053; 81003; 82553; 84484; 85025; 96374; 96376; 99283; J1885; J7030

== ENCOUNTER 2024-09-15 02:59 | Emergency (ER) | payer OTHER ==
[~2024-09-15] VITALS: Ht 154.9 cm; Wt 49.4 kg
[~2024-09-15 02:59] MED LIST changes: +BACTRIM DS TAB1 EACH PO; +DICYCLOMINE HCL20 MG PO; +DOXYCYCLINE HY100 MG PO; +NAPROSYN500 MG PO
[2024-09-15 03:09] VITALS: PULSE 94; RESP 18; TEMP 98.5
[2024-09-15] MEDS: ONDANSETRON HCL 4 MG ORAL DISINTEGRATING TAB PO ONE (03:54)
[2024-09-15] MEDS ORDERED: VENTOLIN HFA18 GM INH (03:56)
[2024-09-15] MEDS ORDERED: ONDANSETRON ODT4 MG PO (03:57)
[2024-09-15] MEDS ORDERED: IBUPROFEN400 MG PO (04:16)
[2024-09-15 04:24] VITALS: BP 122/75; PULSE 94; RESP 18; TEMP 98.5; O2SAT 99
== END 2024-09-15 04:24 | disposition home or self-care (01) ==
LOC: FSED 03:18
DX: U07.1 COVID-19 (principal); R51.9 Headache, unspecified; R05.9 Cough, unspecified; R11.10 Vomiting, unspecified; R19.7 Diarrhea, unspecified; Z88.1 Allergy status to other antibiotic agents
CPT/HCPCS: 0223U; 83518; 87400; 99283; Q0162